=== PATIENT | male | born 1990 | race Caucasian/White ===

== ENCOUNTER 2020-03-04 11:04 | Emergency (ER) | payer BC, OTHER ==
--- NOTE | 2020-03-04 11:42 | EDM.PDOC ---
ED HPI GENERAL MEDICAL PROBLEM - General Chief Complaint: Gastrointestinal Problem Stated Complaint: CHEST PAIN, HEARTBURN, L ARM SORE Time Seen by Provider: 03/04/20 11:40 Source of Information: Reports: Patient, RN History Limitations: Reports: Other (no available old records) - History of Present Illness INITIAL COMMENTS - FREE TEXT/NARRATIVE: 29 yo male visiting from [facility] presents with mild substernal and epigastric pressure. Has had these sx's on and off for a few days. Inconsistent relief with antacids. No nausea or vomiting. No black or bloody stools. Is a non- smoker with no personal or FHx of CAD. He called the clinic and was referred to the ER. No SOB. No fever. Is staying with family locally until things settle down in [facility] with regards to the Covid-19 infection. Sx's worse with lying, not with exertion. Onset: Gradual Duration: Day(s):, Waxing/Waning Location: Reports: Chest, Abdomen (epigastrium) Quality: Reports: Pressure (mild) Severity: Mild Improves with: Reports: Other (? antacids) Worsens with: Reports: Other (uncertain) Context: Reports: Other (See HPI) Associated Symptoms: Reports: Chest Pain. Denies: Cough, Diaphoresis, Fever/ Chills, Nausea/Vomiting, Shortness of Breath Treatments PHOTOGRAPH EDITOR: Reports: Other (see below) (antacids) Anterior Chest Pain Score (Numeric/FACES): 33 - Related Data Allergies Allergy/AdvReac Type Severity Reaction Status Date / Time No Known Allergies Allergy Verified 03/04/20 11:22 Home Meds: Home Meds NK [No Known Home Meds] 03/04/20 [History] Past Medical History HEENT History: Reports: Impaired Vision Genitourinary History: Reports: Renal Calculus - Infectious Disease History Infectious Disease History: Reports: Chicken Pox Social & Family History - Tobacco Use Smoking Status *Q: Never Smoker Second Hand Smoke Exposure: No - Caffeine Use Caffeine Use: Reports: Coffee, Tea - Alcohol Use Days Per Week of Alcohol Use: 7 Number of Drinks Per Day: 2 Total Drinks Per Week: 14 - Recreational Drug Use Recreational Drug Use: Yes Recreational Drug Type: Reports: Marijuana/Hashish Recreational Drug Use Frequency: Rarely ED ROS GENERAL - Review of Systems Review Of Systems: See Below Constitutional: Reports: No Symptoms HEENT: Reports: No Symptoms Respiratory: Reports: No Symptoms Cardiovascular: Reports: Chest Pain (substernal mild pressure). Denies: Claudication, Dyspnea on Exertion, Edema, Lightheadedness, Palpitations, Syncope Endocrine: Reports: No Symptoms GI/Abdominal: Reports: Abdominal Pain (epigastric at times). Denies: Constipation, Diarrhea, Hematochezia, Melena, Nausea, Vomiting : Reports: No Symptoms Musculoskeletal: Reports: No Symptoms Skin: Reports: No Symptoms Neurological: Reports: No Symptoms Psychiatric: Reports: No Symptoms ED EXAM, GI/ABD - Physical Exam Exam: See Below Exam Limited By: No Limitations General Appearance: Alert, WD/WN, No Apparent Distress, Thin Eyes: Bilateral: Normal Appearance Ears: Normal External Exam, Normal Canal, Hearing Grossly Normal, Normal TMs Nose: Normal Inspection, Normal Mucosa, No Blood Throat/Mouth: Normal Inspection, Normal Lips, Normal Oropharynx, Normal Voice, No Airway Compromise Head: Atraumatic, Normocephalic Neck: Normal Inspection Respiratory/Chest: No Respiratory Distress, Lungs Clear, Normal Breath Sounds, No Accessory Muscle Use. No: Respiratory Distress, Decreased Breath Sounds, Crackles, Rales, Rhonchi, Wheezing, Accessory Muscle Use, Retractions Cardiovascular: Regular Rate, Rhythm, No Edema. No: Tachycardia GI/Abdominal Exam: Normal Bowel Sounds, Soft, Non-Tender, No Distention. No: Distended, Guarding, Rigid, Rebound, Tender, Abnormal Bowel Sounds, Hernia Back Exam: Normal Inspection. No: CVA Tenderness (R), CVA Tenderness (L) Extremities: Normal Inspection, Normal Range of Motion, Non-Tender, No Pedal Edema Neurological: Alert, Oriented, CN II-XII Intact, Normal Cognition, No Motor/ Sensory Deficits Psychiatric: Normal Affect, Normal Mood Skin Exam: Warm, Dry, Intact, Normal Color, No Rash EKG INTERPRETATION EKG Date: 03/04/20 Time: 11:40 Rhythm: NSR Rate (Beats/Min): 65 [place]: Normal P-Wave: Present QRS: RBBB (incomplete) ST-T: Normal QT: Normal Comparison: NA - No Prior EKG Course - Vital Signs Last Recorded V/S: Last Vital Signs Temp 36.1 C 03/04/20 11:30 Pulse 74 03/04/20 11:30 Resp 16 03/04/20 11:30 BP 142/75 H 03/04/20 11:30 Pulse Ox 99 03/04/20 11:30 - Orders/Labs/Meds Orders: Active Orders 24 hr Category Date Time Status EKG Documentation Completion [RC] ASDIRECTED Care 03/04/20 11:11 Active EKG 12 Lead [EK] Routine Ther 03/04/20 11:11 Ordered Labs: Laboratory Tests 03/04/20 Range/Units 12:10 Troponin I < 0.017 (0.000-0.056) ng/mL Meds: Medications Discontinued Medications Generic Name Dose Route Start Last Admin Trade Name Freq PRN Reason Stop Dose Admin Al Hydroxide/Mg Hydroxide 15 0 ml 03/04/20 11:53 03/04/20 11:57 ml/ Lidocaine HCl 15 ml PO 03/04/20 11:54 30 ml ONETIME ONE Administration Famotidine 40 mg 03/04/20 12:27 Pepcid PO 03/04/20 12:28 ONETIME ONE Departure - Departure Time of Disposition: 12:50 Disposition: Home, Self-Care 01 Condition: Fair Clinical Impression: Gastritis Qualifiers: Gastritis type: unspecified gastritis Chronicity: acute Gastritis bleeding: without bleeding Qualified Code(s): K29.00 - Acute gastritis without bleeding - Discharge Information *PRESCRIPTION DRUG MONITORING PROGRAM REVIEWED*: No *COPY OF PRESCRIPTION DRUG MONITORING REPORT IN PATIENT DIONI: No Instructions: Gastritis, Adult, [id number] Referrals: PCP,None [Primary Care Provider] - Forms: ED Department Discharge Additional Instructions: Take famotidine 40 mg every day at bedtime. May also take Gaviscon 30 ml orally after meals and at bedtime as needed for continued symptoms. Avoid ibuprofen, Aleve, aspirin, caffeine, carbonated beverages, tobacco products or alcohol. Recheck in a few days in the clinic to make sure you are improving. Return here for exertional chest pain, fever, or shortness of breath. Sepsis Event Note - Evaluation Sepsis Screening Result: No Definite Risk - Focused Exam Vital Signs: Vital Signs Temp Pulse Resp BP Pulse Ox 03/04/20 11:30 36.1 C 74 16 142/75 H 99 Date Exam was Performed: 03/04/20 Time Exam was Performed: 12:41 - My Orders Last 24 Hours: My Active Orders 03/04/20 11:11 EKG Documentation Completion [RC] ASDIRECTED EKG 12 Lead [EK] Routine - Assessment/Plan Last 24 Hours: My Active Orders 03/04/20 11:11 EKG Documentation Completion [RC] ASDIRECTED EKG 12 Lead [EK] Routine
[2020-03-04] MEDS ORDERED: Alum Hydrox/Mag Hydrox/Simeth 15 ML, Lidocaine 2% 15 ML PO ONE ×2 (11:53)
[2020-03-04] MEDS ORDERED: Famotidine 20 MG Tab PO ONE (12:27)
== END 2020-03-04 13:01 | disposition home or self-care (01) ==
LOC: JP.ED 11:04
DX: K29.00 Acute gastritis without bleeding (principal); I45.10 Unspecified right bundle-branch block
CPT/HCPCS: 36415; 84484; 93005; 99285; A9270